=== PATIENT | male | born 1975 | race Caucasian/White ===

== ENCOUNTER 2021-03-30 18:00 | Emergency (ER) | payer SELFPAY ==
[~2021-03-30] VITALS: Ht 177.8 cm; Wt 90.0 kg
[2021-03-30 18:25] VITALS: BP 154/80
--- NOTE | 2021-03-30 18:58 | PHYS DOC ---
Past Medical History Past Surgical History: Other Additional Past Surgical Histo: arm, leg General Adult EDM: Chief Complaint: LACERATION/AVULSION HPI: HPI: Patient is a 46 year old male presents for evaluation of laceration. Patient has a laceration right index finger approximately 3 cm in length. Patient cut his finger on a knife. There is no active bleeding at the time of my exam no tendon involvement the wound is clean no foreign bodies identified. Tetanus within the last 5 years Review of Systems: Review of Systems: Review of systems: Constitutional symptoms- No fever, no chills. Eyes- No Discharge, No Visual Loss Respiratory symptoms- No shortness of breath, No wheezing, No Dyspnea on Exertion Cardiovascular Systems; No chest pain, No Palpitations, No syncope Gastrointestinal symptoms: NO abdominal pain, no nausea, no vomiting or diarrhea. Genitourinary symptoms: No dysuria. Musculoskeletal symptoms: No back pain No extremity pain. NEUROLOGICAL Symptoms: No headache, no generalized weakness; No focal Weakness Skin: No rash. Positive laceration Heart Score: C/O Chest Pain: N/A Risk Factors: Risk Factors: DM, Current or recent (<one month) smoker, HTN, HLP, family history of CAD, obesity. Risk Scores: Score 0 - 3: 2.5% MACE over next 6 weeks - Discharge Home Score 4 - 6: 20.3% MACE over next 6 weeks - Admit for Clinical Observation Score 7 - 10: 72.7% MACE over next 6 weeks - Early Invasive Strategies Allergies: Allergies: Allergies Coded Allergies Type Severity Reaction Last Updated Verified No Known Drug Allergies 03/30/21 No Physical Exam: PE: General: alert, no acute distress. Skin: warm, dry and intact, no erythema, no rash. HENT: bilateral external ears normal, oropharynx moist, nose normal. Head:: Normocephalic, atraumatic. Neck: Trachea midline. Eyes: EOMI, Normal conjunctiva, No drainage CARDIOVASCULAR: Regular rate and rhythm RESPIRATORY: No respiratory distress Back: Full range of motion. MUSCULOSKELETAL: Full range of motion of bilateral upper and lower extremities. GASTROINTESTINAL: Abdomen soft without rebound or guarding. NEUROLOGICAL: Alert and noted to person, place and time. No neurological deficits observed Psychiatric: Cooperative. Normal judgment Finger skin laceration 3 cm laceration lateral aspect of right index finger bleeding controlled no active bleeding no tendon involvement Current Patient Data: Vital Signs: Vital Signs Date Time Temp Pulse Resp B/P (MAP) Pulse Ox O2 Delivery O2 Flow Rate FiO2 03/30/21 18:25 97.9 75 17 154/80 (104) 98 Room Air 97.9 EKG: EKG: [] Radiology/Procedures: Radiology/Procedures: [] Course & Med Decision Making: Course & Med Decision Making Pertinent Labs and Imaging studies reviewed. (See chart for details) [] Procedure local anesthesia with lidocaine. Local anesthesia with approximat derek 3 cc. Wound was cleaned with Betadine. Foreign bodies not identified no tendon involvement. Repair was performed with 4 simple interrupted sutures five-point 0 nylon. No complications wound was dressed by nursing patient was discharged. Patient presented in police custody. He has been medically cleared for incarceration. Sylvia Disclaimer: Sylvia Disclaimer: This electronic medical record was generated, in whole or in part, using a voice recognition dictation system. Departure Departure Impression: Primary Impression: Laceration Additional Impression: Medical clearance for incarceration Disposition: HOME / SELF CARE / HOMELESS Condition: STABLE Referrals: NO PCP (PCP) Patient Instructions: Laceration Care, Adult Additional Instructions: Laceration suture to be removed in 7 to 10 days Patient medically cleared for incarceration. BRANDI BARRETO DO Mar 30, 2021 18:58
== END 2021-03-30 19:24 | disposition home or self-care (01) ==
LOC: ER 18:00
DX: S61.210A Laceration without foreign body of right index finger without damage to nail, initial encounter (principal); W26.0XXA Contact with knife, initial encounter; Y93.89 Activity, other specified; Y92.89 Other specified places as the place of occurrence of the external cause; Y99.8 Other external cause status
CPT/HCPCS: 12002; 99282; 99283